=== PATIENT | female | born 1940 | race Asian ===

== ENCOUNTER 2020-11-22 13:04 | Observation (INO) | payer MEDICARE ==
[~2020-11-22] VITALS: Ht 152.4 cm; Wt 63.2 kg
[2020-11-22] MEDS ORDERED: SAVAYSA30 MG PO (13:24)
[2020-11-22] MEDS ORDERED: Bisoprolol Fumar5 MG PO (13:26)
[2020-11-22] MEDS ORDERED: ERGO400 PO (13:27)
[2020-11-22 15:15] LABS: BASOPHILS ABSOLUTE AUTO 0.04 K/mm3 (0.00-0.23); BASOPHILS PERCENT AUTO 1 % (0-2); EOSINOPHILS ABSOLUTE AUTO 0.03 K/mm3 (0.00-0.68); EOSINOPHILS PERCENT AUTO 0 % (0-6); Hematocrit 39.3 % (33.0-51.0); Hemoglobin 12.8 g/dL (11.5-16.0); IMMATURE GRAN ABSOLUTE AUTO 0.01 K/mm3 (0.00-0.10); IMMATURE GRAN PERCENT AUTO 0 % (0-1); LYMPHOCYTES ABSOLUTE AUTO 1.54 K/mm3 (0.84-5.20); LYMPHOCYTES PERCENT AUTO 20 % (21-46); MONOCYTES PERCENT AUTO 7 % (4-13); Mean Corpuscular HGB 32.1 pg (26.0-34.0); Mean Corpuscular HGB Conc 32.6 g/dL (31.5-36.5); Mean Corpuscular Volume 99 fL (80-100); Mean Platelet Volume 10.2 fL (9.1-12.4); NEUTROPHILS ABSOLUTE AUTO 5.62 K/mm3 (1.96-9.15); NEUTROPHILS PERCENT AUTO 73 % (41-73); Platelet Count 233 K/mm3 (150-400); RDW Coefficient Variation 14.6 % (11.7-14.2); RDW Standard Deviation 52.8 fL (35.1-46.3); Red Blood Cell Count 3.99 M/mm3 (3.80-5.20); White Blood Cell Count 7.74 K/mm3 (4.00-11.30)
[2020-11-22 15:37] LABS: Alanine Aminotransfer (ALT/SGP 23 U/L (12-78); Albumin, Blood 3.6 g/dL (3.4-5.0); Albumin/Globulin Ratio 1.1 (0.8-1.8); Alk Phos 95 U/L (50-136); Anion Gap 4 mmol/L (6-16); Aspartate Aminotrans (AST/SGOT 19 U/L (12-37); Bilirubin, Total 0.7 mg/dL (0.1-1.0); Blood Urea Nitrogen 18 mg/dL (8-24); Bun/Creatinine Ratio 23.7 (12.0-20.0); CO2, Blood 27 mmol/L (21-32); Calcium, Blood 8.9 mg/dL (8.5-10.1); Chloride, Blood 111 mmol/L (98-108); Creatinine, Blood 0.76 mg/dL (0.40-1.00); Globulin, Blood 3.3 g/dL (2.2-4.0); Glomerular Filtration Rate >60 (60-); Glucose, Blood 117 mg/dL (70-99); Sodium, Blood 142 mmol/L (136-145); Total Protein, Blood 6.9 g/dL (6.4-8.2)
[2020-11-22] MEDS ORDERED: LEVE500 PO (16:37)
[2020-11-23 02:25] LABS: BASOPHILS ABSOLUTE AUTO 0.04 K/mm3 (0.00-0.23); BASOPHILS PERCENT AUTO 1 % (0-2); EOSINOPHILS ABSOLUTE AUTO 0.02 K/mm3 (0.00-0.68); EOSINOPHILS PERCENT AUTO 0 % (0-6); Hematocrit 39.3 % (33.0-51.0); IMMATURE GRAN ABSOLUTE AUTO 0.01 K/mm3 (0.00-0.10); IMMATURE GRAN PERCENT AUTO 0 % (0-1); LYMPHOCYTES PERCENT AUTO 26 % (21-46); MONOCYTES PERCENT AUTO 10 % (4-13); Mean Corpuscular HGB Conc 33.1 g/dL (31.5-36.5); Mean Corpuscular Volume 97 fL (80-100); Mean Platelet Volume 10.3 fL (9.1-12.4); NEUTROPHILS PERCENT AUTO 63 % (41-73); Platelet Count 234 K/mm3 (150-400); RDW Coefficient Variation 14.4 % (11.7-14.2); RDW Standard Deviation 51.8 fL (35.1-46.3); Red Blood Cell Count 4.06 M/mm3 (3.80-5.20); White Blood Cell Count 6.17 K/mm3 (4.00-11.30)
[2020-11-23 02:47] LABS: Alanine Aminotransfer (ALT/SGP 20 U/L (12-78); Albumin, Blood 3.5 g/dL (3.4-5.0); Albumin/Globulin Ratio 1.1 (0.8-1.8); Alk Phos 69 U/L (50-136); Anion Gap 4 mmol/L (6-16); Aspartate Aminotrans (AST/SGOT 21 U/L (12-37); Bilirubin, Total 1.4 mg/dL (0.1-1.0); Blood Urea Nitrogen 17 mg/dL (8-24); Bun/Creatinine Ratio 24.4 (12.0-20.0); CO2, Blood 28 mmol/L (21-32); CPK Creatine Kinase 141 U/L (26-193); Calcium, Blood 8.6 mg/dL (8.5-10.1); Chloride, Blood 110 mmol/L (98-108); Globulin, Blood 3.2 g/dL (2.2-4.0); Glomerular Filtration Rate >60 (60-); Glucose, Blood 97 mg/dL (70-99); Potassium, Blood 3.9 mmol/L (3.5-5.5); Sodium, Blood 142 mmol/L (136-145); Total Protein, Blood 6.7 g/dL (6.4-8.2); Troponin I 0.065 ng/mL (0.000-0.040)
--- NOTE | 2020-11-23 05:14 | NUR ---
CALL TO ER [phone] THIS RN CALLS TO ER TO CLARIFY PROVIDER SIGN OFF OF EKG WITH POSSIBLE ST ELEVATION. PER ER, EKG WAS CLEARED BY PROVIDER OF A STEMI.
--- NOTE | 2020-11-23 05:17 | NUR ---
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 PT APPEARS AOX3, SOMNOLENT. OPENS EYES TO VERBAL STIMULI, MORE RESPONSIVE TO SON SPEAKING CROATIAN. PT SLEPT RESTFUL T/O SHIFT. ON TELE SINUS MIKEY 40'S-50'S. SATS 93-96% ON RA. SBP 130'S-150'S. SON AT BEDSIDE SLEEPING IN RECLINER. PT IS A X2 PERSON ASSIST, PER SON, PT HAS NO ASSISTIVE DEVICES, CAN WALK SMALL DISTANCES WITH SUPPORT FROM ASSIST. PT IS INCONTINENT OF URINE, ATTENDS IN PLACE. NO SEIZURE-LIKE ACTIVITY WITNESSED T/O SHIFT. L SIDE DEFICITS. IV INFUSING NS PER ORDERS.
[2020-11-23 11:24] LABS: Troponin I 0.055 ng/mL (0.000-0.040)
[2020-11-23] MEDS ORDERED: LEVE500 PO (14:00)
--- NOTE | 2020-11-23 18:02 | NUR ---
PT HAD ECHOCARDIOGRAM AND EEG; PT WAS INCONTINENT OF URINE 4X AND CONTINENT OF URINE 1X; PT USED HER SON TO INTERPRET NURSING CARE DIRECTIONS; PT AND SON GIVEN DISCHARGE INSTRUCTIONS AT 1540, PIV R AC D/C'ED AT 1555, PT DRESSED IN STREET CLOTHES AND LEFT UNIT AT 1733 VIA WHEELCHAIR ACCOMPANIED BY PERSONAL EFFECTS, SON, AND NURSE TECH, WITH NO OXYGEN THERAPY, MONITORING, OR INFUSIONS; PT'S SON WANTED TO VERIFY THAT [facility] WAS CALLED TO PHARMACY; RN CALLED PHARMACY AT 1801 TO PROVIDE INSURANCE INFORMATION FOR PT
== END 2020-11-23 17:36 | disposition home or self-care (01) ==
LOC: ER 13:04 → PCU 20:29 → ER 20:29 → PCU 20:31
PROVIDERS: Emergency Medicine; ADMIT Internal Medicine
DX: G40.409 Other generalized epilepsy and epileptic syndromes, not intractable, without status epilepticus (principal); R79.89 Other specified abnormal findings of blood chemistry; I69.354 Hemiplegia and hemiparesis following cerebral infarction affecting left non-dominant side; I48.0 Paroxysmal atrial fibrillation; Z79.01 Long term (current) use of anticoagulants; I42.2 Other hypertrophic cardiomyopathy; I25.3 Aneurysm of heart; Q21.1 Atrial septal defect
CPT/HCPCS: 36415; 70450; 80053; 82550; 84146; 84484; 85025; 93005; 93010; 95819; 96365; 96366; 96372; 96375; 99285-25; C8929; G0378; J1650; J1953; J2060; J7030; Q9957